=== PATIENT | male | born 2005 | race Caucasian/White ===

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

== ENCOUNTER 2024-01-30 05:27 | Emergency (ER) | payer SELFPAY ==
[2024-01-30 05:31] VITALS: BP 104/60; PULSE 92; RESP 18; TEMP 37.1; O2SAT 99; BMI 17.3
[2024-01-30 05:47] VITALS: BP 110/49; PULSE 82; RESP 14; TEMP 36.6; O2SAT 98
[2024-01-30 05:52] LABS: Basophils Percent Auto 0.2 % (0-2); Hematocrit 44.4 % (42.0-52.0); Hemoglobin 15.6 g/dl (14.0-18.0); Imm Gran Abs Auto 0.05 X10*3/uL (0.00-0.03); Imm Gran Pct Auto 0.4 % (0.0-0.4); Lymphocytes Absolute Auto 0.8 X10*3/uL (1.2-4.9); Lymphocytes Percent Auto 5.5 % (20-40); MANUAL DIFF FLAG SCAN; Mean Corpuscular HGB Conc 35.1 g/dl (31.0-36.0); Mean Corpuscular Hemoglobin 28.6 pg (27.0-33.0); Mean Corpuscular Volume 81.3 fL (80.0-98.0); Mean Platelet Volume 9.3 fL (9.4-12.4); Monocytes Absolute Auto 0.4 X10*3/uL (0.1-1.2); Monocytes Percent Auto 2.5 % (2-11); Neutrophils Percent Auto 91.4 % (45-73); Platelet Count 276 X10*3/uL (160-400); Red Blood Count 5.46 X10*6/uL (4.60-5.80); Red Cell Distribution Width 11.9 % (11.0-16.0); SCAN SMEAR FLAG 1; White Blood Count 14.2 X10*3/uL (4.8-10.8)
[2024-01-30 06:10] LABS: SLIDE REVIEW VERIFIED
[2024-01-30 06:14] LABS: Alanine Aminotransferase 17 U/L (0-40); Albumin Level 4.8 g/dL (3.5-5.0); Alkaline Phosphatase 74 U/L (39-117); Anion Gap 17 (12-20); Aspartate Amino Transferase 26 U/L (5-37); Bilirubin Total 1.8 mg/dL (0.0-1.0); Blood Urea Nitrogen 21 mg/dL (9-16); Calcium 9.9 mg/dL (8.4-10.2); Carbon Dioxide 23 mmol/L (22-29); Chloride 105 mmol/L (96-108); Creatinine Clr Calc Pharmacy 110.8; Estimated Glomerular Filt Rate > 60; Glucose Random 122 mg/dL (60-115); Lipase 17 U/L (8-78); Potassium 4.1 mmol/L (3.3-5.1); Sodium 141 mmol/L (135-145); Total Protein 8.4 g/dL (6.5-8.0)
[2024-01-30 06:29] LABS: Influenza A PCR POSITIVE (Negative); Influenza B PCR NEGATIVE (Negative); Resp Syncy Virus RNA Qual PCR NEGATIVE (Negative); SARS COV2 PCR INHOUSE NEGATIVE (Negative)
--- NOTE | 2024-01-30 06:35 | ED.NAVMDI ---
HPI - Nausea/Vomiting/Diarrhea General Chief complaint: Nausea/Vomiting/Diarrhea Stated complaint: Vomiting Time Seen by Provider: 01/30/24 06:31 Source: patient Mode of arrival: ambulatory Limitations: no limitations History of Present Illness HPI Narrative: 18 year old male with no significant pmhx presents to the ED today for evaluation of nausea, vomiting and loose stool beginning around 1999 last night. He states that he has not been able to keep food/drink down. He last ate at 1700 yesterday. Last episode of vomiting was approximately 7 minutes prior to evaluation. He endorses epigastric abdominal pain that began after multiple episodes of vomiting. Reports family members at home are ill with same symptoms with no specific diagnosis. He did not receive the influenza vaccination this year. Denies history of abdominal surgeries. Denies illicit drug use including marijuana. Denies EtOH consumption. Denies fever, chills, sore throat, ear pain, chest pain, palpitations, shortness of breath, hematemesis, melena, hematochezia, Related Data Home Medications Medication Instructions Recorded Confirmed clonidine HCl 0.1 mg tablet 0.1 mg PO BEDTIME 07/17/22 cyproheptadine 4 mg tablet 4 mg PO BEDTIME 07/17/22 mirtazapine 30 mg tablet 30 mg PO BEDTIME 07/17/22 Previous Rx's Medication Instructions Recorded albuterol sulfate 90 mcg/actuation 2 puff inhalation Q4-6H PRN 11/01/21 aerosol inhaler shortness of breath or wheezing #6.7 grams azithromycin 250 mg tablet 250 mg PO DAILY 4 days #4 tabs 11/01/21 ondansetron 4 mg disintegrating 4 mg PO DAILY PRN nausea and 01/30/24 tablet vomiting 5 days #14 tabs oseltamivir 75 mg capsule (Tamiflu) 75 mg PO BID 5 days #10 caps 01/30/24 Allergies Allergy/AdvReac Type Severity Reaction Status Date / Time No Known Allergies Allergy Verified 07/17/22 15:14 [No Known Allergies*] Review of Systems Review of Systems: Constitutional: No fever, chills, fatigue, night sweats, weight changes ENT/Mouth: No ear pain, hearing loss, nasal congestion, sinus pain, rhinorrhea, sore throat Eyes: No eye pain, swelling, redness, vision changes, discharge Cardio: No chest pain, palpitations, AMOR, orthopnea, peripheral edema Pulm: No SOB, cough, sputum, wheezing, dyspnea, hemoptysis GI: No hematemesis, constipation, hematochezia, melena, + nausea, + vomiting, + diarrhea, + abdominal pain : No irregular bleeding, dysuria, frequency, urgency, hesitancy, hematuria, flank pain, urinary flow changes, urinary incontinence or retention MSK: No back pain, neck pain, joint pain, myalgias Skin: No lesions, rashes Neuro: No weakness, numbness, paresthesias, LOC, dizziness, headache Psych: No anxiety/panic, depression, SI/HI, AH/VH All other systems reviewed and are negative. [facility] Past Medical History Attestation statement: The following information was validated with the patient. Source: unable to obtain and obtained from family Medical History Kidney cysts Social History Social History Smoked in Last 30 Days: No Use of substances other than those prescribed or required for medical reasons: No Advance Directives: No Advance Directives Information Provided: Yes Physical Exam Vital Signs: Vital Signs: Last Vital Signs Temp 98.1 F 01/30/24 08:09 Pulse 100 01/30/24 08:09 Resp 16 01/30/24 08:09 BP 95/49 L 01/30/24 08:09 Pulse Ox 100 01/30/24 08:09 O2 Del Method Room Air 01/30/24 08:09 BMI result Body Mass Index 17.3 Vital signs stable, afebrile Const: General: cooperative, healthy appearing, comfortable and no acute distress Nutritional Appearance: thin Orientation/consciousness: patient oriented x3 Limitations: no limitations HEENT: Head: Yes normal to inspection, Yes No palpable skull fracture present, Yes normocephalic and Yes atraumatic Ears: hearing grossly normal bilaterally, external ears normal, TM's normal bilaterally, EAC's normal, mastoids normal and no periauricular adenopathy General nose exam: Normal external nose present and No nasal discharge present Face and sinus: Yes normal facial exam and Yes sinuses nontender Eyes: General: appearance normal, both eyes and all related structures Neck: Neck: Yes normal visual inspection, Yes full ROM, Yes no lymphadenopathy and Yes no meningeal signs Resp: Effort & Inspection: normal respiratory effort Auscultation: clear to auscultation bilaterally Cardio: Rate: regular rate Rhythm: regular rhythm GI: Other: + abdomen soft, nondistended, nontender, no rebound tenderness or guarding, normoactive bowel sounds x4 Inspection: Yes normal to inspection : General: Yes no CVA tenderness Back/Spine/Pelvis: Back: no CVA tenderness Skin: General skin exam: no rashes or lesions noted Neuro: General: patient oriented x3 and no meningeal signs Extrem: General: Yes normal to inspection, Yes full ROM and Yes capillary refill normal Course Course Course Narrative: 0636-- Patient has tested positive for influenza. He has tested negative for covid and RSV. Will order IVF for elevated BUN. CBC without anemia. There is leukocytosis to 14.2 likely secondary to multiple episodes of vomiting. Reglan/benadryl ordered. will PO trial. No other acute electrolyte abnormalities reguiring intervention. Tamiflu ordered after discussion with patient regarding risks vs benefits. 0750-- On re-evaluation, patient is sleeping comfortably in the exam bed. He has received Tamiflu, IV fluids and antinausea medication. He reports symptom improvement. He has had no further episodes of vomiting in ED. he has been tolerating crackers and gabbie sonny in ED. states that he feels comfortable being discharged home. Will send Tamiflu and Zofran to pharmacy for symptomatic treatment. He is agreeable to this. Patient has remained stable throughout ED visit today. Discussed worrisome signs and symptoms and when to return to the ED. All questions answered at this time. Patient is agreeable with disposition and stable for discharge. Medications Administered Discontinued Medications Generic Name Dose Route Start Last Admin Trade Name Freq PRN Reason Stop Dose Admin Diphenhydramine HCl 25 mg 01/30/24 06:45 01/30/24 07:12 Diphenhydramine Hcl 50 Mg/Ml Vial IVPUSH 01/30/24 06:46 25 mg ONCE ONE Administration Sodium Chloride 1,000 mls @ 999 mls/hr 01/30/24 06:45 01/30/24 08:10 Ns IV 01/30/24 07:45 Infused .Q1H1M JAYJAY Infusion Metoclopramide HCl 10 mg 01/30/24 06:45 01/30/24 07:13 Metoclopramide Hcl 10 Mg/2 Ml Vial IVPUSH 01/30/24 06:46 10 mg ONCE ONE Administration Oseltamivir Phosphate 75 mg 01/30/24 06:45 01/30/24 07:13 Oseltamivir Phosphate 75 Mg Capsule PO 01/30/24 06:46 75 mg ONCE ONE Administration Medical Decision Making Medical Decision Making [facility] Narrative: 18 year old male with no significant pmhx presents to the ED today for evaluation of nausea, vomiting and loose stool beginning around 1999 last night. Vital signs stable, afebrile. Patient is slightly hypotensive to 110/49, likely secondary to dehydration. On review of previous vitals, this appears to be around patient's baseline. He is nontoxic-appearing and in no acute distress. Physical exam, abdomen soft, ND/NT, no rebound tenderness or guarding, normoactive bowel sounds x4. No CVAT bilaterally. No rashes. Moist mucous membranes. Bilateral EACs and TMs WNL. Posterior oropharynx WNL. Differential diagnosis includes viral syndrome, gastroenteritis, gastritis, IBS. Lower suspicion for diverticulosis/diverticulitis, appendicitis, pancreatitis, acute abdomen. Plan for labs, viral serology, IV fluids, antiemetic and re-evaluation. Differential Diagnosis Differential Diagnoses: The differential diagnosis associated with the presentation includes As above Admission/Observation Not indicated Lab Data [facility] Lab Attestation statement: I reviewed the patient's lab results. As above 01/30/24 05:44 01/30/24 05:44 Labs: Lab Results 01/30/24 Range/Units 05:44 WBC 14.2 H (4.8-10.8) X10*3/uL RBC 5.46 (4.60-5.80) X10*6/uL Hgb 15.6 (14.0-18.0) g/dl Hct 44.4 (42.0-52.0) % MCV 81.3 (80.0-98.0) fL MCH 28.6 (27.0-33.0) pg MCHC 35.1 (31.0-36.0) g/dl RDW 11.9 (11.0-16.0) % Plt Count 276 D (160-400) X10*3/uL MPV 9.3 L (9.4-12.4) fL Immature Gran % (Auto) 0.4 (0.0-0.4) % Neut % (Auto) 91.4 H (45-73) % Lymph % (Auto) 5.5 L (20-40) % Sherman % (Auto) 2.5 (2-11) % Eos % (Auto) 0.0 (0-4) % Baso % (Auto) 0.2 (0-2) % Lymph # (Auto) 0.8 L (1.2-4.9) X10*3/uL Sherman # (Auto) 0.4 (0.1-1.2) X10*3/uL Eos # (Auto) 0.0 (0.0-0.4) X10*3/uL Baso # (Auto) 0.0 (0.0-0.2) X10*3/uL Abs Immat Gran (auto) 0.05 H (0.00-0.03) X10*3/uL Absolute Neuts (auto) 13.0 H (2.0-8.3) x10*3/uL Absolute Nucleated RBC 0.000 (0.0-0.012) X10*3/uL Nucleated RBC % (auto) 0.0 (0.0-0.2) /100WBC Smear Tech's Comments VERIFIED Sodium 141 (135-145) mmol/L Potassium 4.1 (3.3-5.1) mmol/L Chloride 105 (96-108) mmol/L Carbon Dioxide 23 (22-29) mmol/L Anion Gap 17 (12-20) BUN 21 H (9-16) mg/dL Creatinine 0.76 (0.5-1.4) mg/dL Estim Creat Clear Calc 110.8 Estimated GFR > 60 Random Glucose 122 H (60-115) mg/dL Calcium 9.9 (8.4-10.2) mg/dL Total Bilirubin 1.8 H (0.0-1.0) mg/dL AST 26 (5-37) U/L ALT 17 (0-40) U/L Alkaline Phosphatase 74 (39-117) U/L Total Protein 8.4 H (6.5-8.0) g/dL Albumin 4.8 (3.5-5.0) g/dL Lipase 17 (8-78) U/L Influenza Type A (PCR) POSITIVE A (Negative) Influenza Type B (PCR) NEGATIVE (Negative) RSV RNA Qual (PCR) NEGATIVE (Negative) SARS-CoV-2 RNA (RT-PCR) NEGATIVE (Negative) Independent Historian Clinical information obtained from an independent historian. History obtained from or confirmed by: Friend External Record Review External record reviewed: Inpatient record, Office record, Outpatient record, Prior outpatient labs, Prior outpatient radiology, Primary care record and Outside ED record Tests considered The following testing was considered but not selected: I considered ordering CT abdomen/pelvis however patient's exam is benign, no concern for acute abdomen, not warranted at this time. Prescription Management I considered prescription management with: Pain Medication, Antiviral (Tamiflu) and Other (Zofran) Social Determinants Patient?s care significantly limited by Social Determinants of Health including: Other Social Determinant of Health Discharge Plan Discharge Clinical Impression: Influenza A Patient Disposition: Home, Self-Care Instructions: Influenza (ED), Flu Shot (Vaccine) for Adults (ED), Droplet Precautions (ED) Additional Instructions: You have tested positive for influenza A. You tested negative for COVID and RSV. The treatment for flu is symptomatic. This is contagious. Limit contact with others until you are symptom free. As discussed, you have been given a dose of Tamiflu in the ED. The rest of the prescription has been sent to your pharmacy. Take this as directed over the next 5 days. Please take Tylenol and ibuprofen as needed for fever or body aches. Make sure you are getting rest and lots of oral hydration.? Stick to a bland diet like soup and toast while you are not feeling well.? Zofran is an anti-nausea medication. This has been sent to your pharmacy for you to take as needed for nausea.? You can also try over the counter Pepto Bismol or Imodium as needed for upset stomach and diarrhea.? Follow up with your primary care provider as needed. If you develop new or worsening symptoms call 911 or come back to the ER for further evaluation. Prescriptions: New oseltamivir [Tamiflu] 75 mg capsule 75 mg PO BID 5 Days Qty: 10 0RF ondansetron 4 mg tablet,disintegrating 4 mg PO DAILY PRN (Reason: nausea and vomiting) 5 Days Qty: 14 0RF No Action azithromycin 250 mg tablet 250 mg PO DAILY 4 Days Qty: 4 0RF Rx Instructions: start on day 2 of therapy albuterol sulfate 90 mcg/actuation HFA aerosol inhaler 2 puff inhalation Q4-6H PRN (Reason: shortness of breath or wheezing) Qty: 6.7 0RF mirtazapine 30 mg tablet 30 mg PO BEDTIME cyproheptadine 4 mg tablet 4 mg PO BEDTIME clonidine HCl 0.1 mg tablet 0.1 mg PO BEDTIME Referrals: Physician,Unknown J [Primary Care Provider] - Stand Alone Forms: Work/School Release Discharge Date/Time: 01/30/24 08:11
[2024-01-30] MEDS: diphenhydrAMINE HCL 50 MG/ML VIAL 25 MG IVPUSH (07:12)
[2024-01-30] MEDS: 0.9 % Sodium Chloride 1,000 ML 999 ML IV (07:12)
[2024-01-30] MEDS: Oseltamivir Phosphate 75 MG CAPSULE PO (07:13)
[2024-01-30] MEDS: Metoclopramide HCl 10 MG/2 ML VIAL IVPUSH (07:13)
[2024-01-30 08:09] VITALS: BP 95/49; PULSE 100; RESP 16; TEMP 36.7; O2SAT 100
--- NOTE | 2024-01-30 08:10 | PC.NURSE ---
patient passed PO challange ate crackers and gingerale without vomiting
== END 2024-01-30 08:11 | disposition home or self-care (01) ==
PROVIDERS: Emergency Provider Emergency Medicine
DX: J10.1 Influenza due to other identified influenza virus with other respiratory manifestations (principal); R11.2 Nausea with vomiting, unspecified; R10.13 Epigastric pain; Z11.52 Encounter for screening for COVID-19; Z20.822 Contact with and (suspected) exposure to COVID-19; Z79.899 Other long term (current) drug therapy
CPT/HCPCS: 0241U; 36415; 80053; 83690; 85025; 96361; 96374; 96375; 99284; J1200; J2765